=== PATIENT | female | born 1955 | race Caucasian/White ===

== ENCOUNTER → 2016-08-03 | Outpatient (CLI) | payer BC ==
[~2016-08-03] MED LIST: B-COCAP2 PO; MISCCAP80 PO; MULTTAB PO; VITACAP37 PO
--- NOTE | 2016-08-03 10:48 | DIAGNOSTIC IMAGING REPORT ---
MRI RIGHT FOREFOOT WITHOUT IV CONTRAST CLINICAL HISTORY: Metatarsalgia. COMPARISON STUDY: No priors. TECHNIQUE: MRI of the right forefoot is performed utilizing various T1 and T2-weighted sequences in the axial, sagittal, and coronal planes. IV contrast was not administered for this examination. Note that interpretation is suboptimal without plain film correlate. FINDINGS: There is no MRI evidence of fracture or osteonecrosis in the right forefoot. There is mild marrow edema seen within the lateral sesamoid at the first metatarsophalangeal joint suggesting sesamoiditis. Minimal degenerative change is present at the first metatarsophalangeal joint. The joint spaces in the forefoot are otherwise preserved. The visualized flexor and extensor tendons appear intact. The regional musculature is normal in bulk and signal intensity. Clinical correlation will be required. There is no evidence of Lisfranc injury. The overlying soft tissues are within normal limits. IMPRESSION: 1. There is no MRI evidence of fracture or osteonecrosis in the right forefoot. 2. Findings suggest lateral sesamoiditis at the first metatarsophalangeal joint. Dictated: 08/03/2016 10:27 AM Transcribed: 08/03/2016 10:47 AM [facility] Electronically signed by: Evangelista Hugo M.D. 08/03/2016 10:51 AM Dictated Date/Time: 08/03/2016 10:27 AM
== END | disposition home or self-care (01) ==
LOC: C.MRI 09:05
PROVIDERS: ATTEND Podiatrist
DX: M79.671 Pain in right foot (principal); M77.41 Metatarsalgia, right foot